=== PATIENT | male | born 1990 | race Caucasian/White ===

== ENCOUNTER 2019-11-21 01:00 | Emergency (ER) | payer OTHER ==
[~2019-11-21] VITALS: Ht 185.4 cm; Wt 129.3 kg
[~2019-11-21 01:00] MED LIST: ACETAMINOPHEN-1 EAC1 PO; AMOXICILLIN875 MG PO
[2019-11-21 01:35] LABS: INFLUENZA A ANTIGEN Negative (Negative); INFLUENZA B ANTIGEN Negative (Negative)
[2019-11-21] MEDS ORDERED: AMOXICILLIN875 MG PO (02:09)
[2019-11-21] MEDS ORDERED: HYDROCODON-ACE1 EAC8 PO (02:09)
[2019-11-21 02:14] VITALS: BP 132/86
== END 2019-11-21 02:14 | disposition home or self-care (01) ==
LOC: M.ERS 01:00
PROVIDERS: Emergency Medicine
DX: J03.90 Acute tonsillitis, unspecified (principal)